=== PATIENT | female | born 1935 | race Caucasian/White ===

== ENCOUNTER 2017-02-18 09:55 | Emergency (ER) | payer MEDICARE, OTHER ==
[~2017-02-18] VITALS: Ht 157.5 cm; Wt 59.0 kg
[~2017-02-18 09:55] MED LIST: ACETAMINOPHEN325 M1 PO; ALENDRONATE SOD70 MG PO; AMITRIPTYLINE100 MG PO; CALCIUM500 MG PO; COLACE100 MG PO; COUMADIN5 M1 PO; FLUVIRIN IM; FOSAMAX70 MG PO; GABAPENTIN100 MG PO; L-LYSINE500 M1 PO; LANSOPRAZOLE30 MG PO; LEVOTHROID88 MCG PO; LEVOTHYROXINE50 MCG PO; LEVOTHYROXINE75 MCG PO; MAGNESIUM30 MG PO; MULTIVITAMINS1 EAC7 PO; NORCO 5-325 TA1 EACH PO; NORTRIPTYLINE H10 MG PO; OMEPRAZOLE20 MG PO; PERCOCET 5-3251 EACH PO; PROBIOTIC1 EAC1 PO; PROVENTIL HFA6.7 GM INH; RANITIDINE HCL150 MG PO; SUCRALFATE1 GM PO; TUMS ULTRA400 MG PO; TYLENOL WITH C1 EACH PO; TYLENOL325 MG PO; VITAMIN B-121000 MCG PO; VITAMIN D1000 UNI1 PO; WARFARIN SODIUM5 MG PO
[2017-02-18] MEDS ORDERED: NORCO 5-325 TA1 EACH PO (10:29)
[2017-03-30] MEDS ORDERED: NORTRIPTYLINE H10 MG PO (13:39)
[2017-04-24] MEDS ORDERED: KEFLEX500 MG PO (14:40)
== END 2017-02-18 10:40 | disposition home or self-care (01) ==
LOC: ED 09:55
DX: S09.90XA Unspecified injury of head, initial encounter (principal); S39.012A Strain of muscle, fascia and tendon of lower back, initial encounter; F32.9 Major depressive disorder, single episode, unspecified; E03.9 Hypothyroidism, unspecified; K21.9 Gastro-esophageal reflux disease without esophagitis; Z79.01 Long term (current) use of anticoagulants; Z79.899 Other long term (current) drug therapy; W18.30XA Fall on same level, unspecified, initial encounter
CPT/HCPCS: 99283

== ENCOUNTER 2017-04-10 12:58 | Emergency (ER) | payer MEDICARE, OTHER ==
[~2017-04-10] VITALS: Ht 157.5 cm; Wt 59.4 kg
[2017-04-10] MEDS ORDERED: TRAMADOL HCL50 MG PO (17:23)
[2017-04-10] MEDS ORDERED: LEVOFLOXACIN500 MG PO (17:23)
--- NOTE | 2017-04-12 22:27 | EKG ---
[facility] [address] [facility] [address] [address] [place] [address] Signed Normal sinus rhythm Prolonged QT Abnormal ECG When compared with ECG of 24-JUL-2016 16:08, No significant change was found Confirmed by SHARON POOLE MD ([id number] on 04/12/2017 10:27:42 PM Electronically Signed By: SHARON POOLE MD 04/12/17 2227 PATIENT NAME: MONICA SANABRIA PERI Electrocardiogram DATE OF : 39 PHYSICIAN: SHARON POOLE MD REPORT #: [id number] REPORT IS CONFIDENTIAL AND NOT TO BE RELEASED WITHOUT AUTHORIZATION
[2017-04-24] MEDS ORDERED: KEFLEX500 MG PO (14:40)
== END 2017-04-10 18:57 | disposition home or self-care (01) ==
LOC: ED 12:58
PROC: 0HQ0XZZ Repair Scalp Skin, External Approach (ICD-10-PCS; principal; 2017-04-10)
DX: S02.119A Unspecified fracture of occiput, initial encounter for closed fracture (principal); J18.9 Pneumonia, unspecified organism; F32.9 Major depressive disorder, single episode, unspecified; E03.9 Hypothyroidism, unspecified; K21.9 Gastro-esophageal reflux disease without esophagitis; Z79.01 Long term (current) use of anticoagulants; Z79.899 Other long term (current) drug therapy; W10.9XXA Fall (on) (from) unspecified stairs and steps, initial encounter
CPT/HCPCS: 12001; 70450; 71010; 80053; 85025; 85610; 90471; 90715; 93005; 93010; 96374; 99284; J0696

== ENCOUNTER → 2017-04-24 | Emergency (ER) | payer MEDICARE, OTHER ==
[~2017-04-24] VITALS: Ht 157.5 cm; Wt 59.0 kg
[~2017-04-24] MED LIST changes: +KEFLEX500 MG PO; +LEVOFLOXACIN500 MG PO; +TRAMADOL HCL50 MG PO
== END ==
LOC: ED 12:43
DX: Z51.81 Encounter for therapeutic drug level monitoring (principal); L03.116 Cellulitis of left lower limb; F32.9 Major depressive disorder, single episode, unspecified; E03.9 Hypothyroidism, unspecified; K21.9 Gastro-esophageal reflux disease without esophagitis; Z79.899 Other long term (current) drug therapy; Z79.01 Long term (current) use of anticoagulants
CPT/HCPCS: 73610; 85025; 85610; 99283

== ENCOUNTER 2017-08-30 17:47 | Emergency (ER) | payer MEDICARE, OTHER ==
[~2017-08-30] VITALS: Ht 157.5 cm; Wt 59.4 kg
[2017-08-30] MEDS ORDERED: LIDODERM1 EACH TOP (22:23)
[2017-08-30] MEDS ORDERED: NORCO 5-325 TA1 EACH PO (22:23)
== END 2017-08-30 22:57 | disposition home or self-care (01) ==
LOC: ED 17:47
DX: S22.31XA Fracture of one rib, right side, initial encounter for closed fracture (principal); E03.9 Hypothyroidism, unspecified; Z79.899 Other long term (current) drug therapy; W01.10XA Fall on same level from slipping, tripping and stumbling with subsequent striking against unspecified object, initial encounter
CPT/HCPCS: 71260; 73090; 74177; 80053; 85025; 85610; 99284; Q9967

== ENCOUNTER 2019-07-08 06:55 | Emergency (ER) | payer MEDICARE, OTHER ==
[~2019-07-08] VITALS: Ht 157.5 cm; Wt 59.4 kg
[~2019-07-08 06:55] MED LIST changes: +LIDODERM1 EACH TOP
== END 2019-07-08 09:05 | disposition home or self-care (01) ==
LOC: ED 06:55
DX: S01.81XA Laceration without foreign body of other part of head, initial encounter (principal); W01.198A Fall on same level from slipping, tripping and stumbling with subsequent striking against other object, initial encounter; F32.9 Major depressive disorder, single episode, unspecified; E03.9 Hypothyroidism, unspecified; K21.9 Gastro-esophageal reflux disease without esophagitis; Z79.899 Other long term (current) drug therapy
CPT/HCPCS: 12011; 70450; 99284-25

== ENCOUNTER 2019-12-13 10:43 | Emergency (ER) | payer MEDICARE, OTHER ==
[~2019-12-13] VITALS: Ht 160 cm; Wt 58.5 kg
--- NOTE | 2019-12-13 16:39 | EKG ---
[facility] [address] [facility] [place], [place] [address] Signed Normal sinus rhythm Nonspecific ST abnormality Abnormal ECG When compared with ECG of 10-APR-2017 14:28, No significant change was found Confirmed by SARAH MENDEZ DO ([id number]) on 12/13/2019 4:39:33 PM Electronically Signed By: SARAH MENDEZ DO 12/13/19 1639 PATIENT NAME: MONICA SANABRIA Electrocardiogram DATE OF : 39 PHYSICIAN: SARAH MENDEZ DO REPORT #: [id number] REPORT IS CONFIDENTIAL AND NOT TO BE RELEASED WITHOUT AUTHORIZATION
== END 2019-12-13 19:02 | disposition short-term general hospital (02) ==
LOC: ED 10:43
PROC: 0T9B70Z Drainage of Bladder with Drainage Device, Via Natural or Artificial Opening (ICD-10-PCS; principal; 2019-12-13)
DX: S72.031A Displaced midcervical fracture of right femur, initial encounter for closed fracture (principal); T79.6XXA Traumatic ischemia of muscle, initial encounter; F32.9 Major depressive disorder, single episode, unspecified; E03.9 Hypothyroidism, unspecified; K21.9 Gastro-esophageal reflux disease without esophagitis; Z79.899 Other long term (current) drug therapy; W18.30XA Fall on same level, unspecified, initial encounter
CPT/HCPCS: 51702; 70450; 72125; 73502; 80053; 81001; 82550; 83735; 84484; 85025; 93005; 93010; 99285-25; J2270; J7030

== ENCOUNTER 2020-05-05 08:46 | Emergency (ER) | payer MEDICARE, OTHER ==
[~2020-05-05] VITALS: Ht 160 cm; Wt 58.5 kg
[2020-05-05] MEDS ORDERED: NORCO 5-325 TA1 EACH PO (10:50)
== END 2020-05-05 11:10 | disposition home or self-care (01) ==
LOC: ED 08:46
DX: R07.89 Other chest pain (principal); D49.1 Neoplasm of unspecified behavior of respiratory system; F32.9 Major depressive disorder, single episode, unspecified; E03.9 Hypothyroidism, unspecified; Z79.899 Other long term (current) drug therapy
CPT/HCPCS: 71101; 99284-25